=== PATIENT | female | born 1975 | race African-American/Black ===

== ENCOUNTER 2023-04-13 20:55 | Emergency (ER) | payer OTHER ==
[2023-04-13] MEDS ORDERED: DALBAVANCIN HCL 500 MG VIAL (RESTRICTED TO ID ONLY) IVPB ONE (21:12)
[2023-04-13 21:19] VITALS: BP 135/76; PULSE 83; RESP 16; TEMP 98.2; BMI 38.4
[2023-04-13 21:35] LABS: HEMATOCRIT 32.2 % (32.4-45.2); HEMOGLOBIN 10.3 G/dL (10.7-15.3); MCHC 31.9 g/dl (32.0-36.0); MEAN PLT VOLUME 7.5 fl (7.5-11.1); PLATELET COUNT 315.7 10^3/uL (134-434); RBC 4.47 10^6/uL (3.60-5.2); RDW 19.6 % (11.6-15.6); WHITE BLOOD COUNT 5.9 10^3/uL (4.0-10.8)
[2023-04-13] MEDS: DALBAVANCIN HCL 1,500 MG in DEXTROSE 5%-WATER - 500 ML IVPB ONE (21:40)
[2023-04-13 21:53] LABS: BILIRUBIN,TOTAL 0.3 mg/dl (0.2-1); CALCIUM 9.5 mg/dl (8.5-10.1); CREATININE 0.8 mg/dl (0.6-1.3); POTASSIUM 3.9 mmol/L (3.5-5.1); TOT PROT 7.9 g/dl (6.4-8.2)
== END 2023-04-13 23:00 | disposition home or self-care (01) ==
LOC: FER 20:55
DX: L03.115 Cellulitis of right lower limb (principal); L08.9 Local infection of the skin and subcutaneous tissue, unspecified
CPT/HCPCS: 36415; 80053; 85027; 99285-25; J0875